=== PATIENT | female | born 1950 | race Caucasian/White ===

== ENCOUNTER 2018-04-25 09:39 | Outpatient (CLI) | payer OTHER ==
[~2018-04-25 09:39] MED LIST: AMPICILLIN125 MG/5 M PO; DICLOFENAC SOD100 MG PO; PANADOL EXTRA500 MG PO; ROBITUSSIN COUG PO
== END 2018-04-25 09:54 | disposition home or self-care (01) ==
LOC: LAB 09:39
DX: R19.04 Left lower quadrant abdominal swelling, mass and lump (principal); Z51.81 Encounter for therapeutic drug level monitoring

== ENCOUNTER 2018-05-02 07:35 | Outpatient (CLI) | payer OTHER | END 2018-05-02 12:31 | disposition home or self-care (01) | LOC: TOM 07:35 | DX: R19.02 Left upper quadrant abdominal swelling, mass and lump (principal); Z85.038 Personal history of other malignant neoplasm of large intestine | CPT/HCPCS: 71260; 74177; Q9965 ==

== ENCOUNTER → 2019-05-22 | Outpatient (CLI) | payer OTHER | END | disposition home or self-care (01) | LOC: TOM 08:47 | DX: C18.9 Malignant neoplasm of colon, unspecified (principal); C50.919 Malignant neoplasm of unspecified site of unspecified female breast ==

== ENCOUNTER 2022-11-17 08:12 | Outpatient (CLI) | payer OTHER | END 2022-11-17 08:18 | disposition home or self-care (01) | LOC: RAD 08:12 | DX: M51.9 Unspecified thoracic, thoracolumbar and lumbosacral intervertebral disc disorder (principal) ==

== ENCOUNTER 2023-12-27 09:14 | Outpatient (CLI) | payer OTHER | END 2023-12-27 09:15 | disposition home or self-care (01) | LOC: NUCLEAR 09:14 | PROVIDERS: ATTEND Specialist | DX: C50.212 Malignant neoplasm of upper-inner quadrant of left female breast (principal); C18.5 Malignant neoplasm of splenic flexure | CPT/HCPCS: 78315; A9503 ==

== ENCOUNTER 2024-04-01 08:09 | Outpatient (CLI) | payer OTHER | END 2024-04-01 08:14 | disposition home or self-care (01) | LOC: RAD 08:09 | DX: M16.0 Bilateral primary osteoarthritis of hip (principal) ==

== ENCOUNTER 2025-01-02 07:16 | Outpatient (CLI) | payer OTHER | END 2025-01-02 07:17 | disposition home or self-care (01) | LOC: NUCLEAR 07:16 | PROVIDERS: ATTEND Specialist | DX: C50.212 Malignant neoplasm of upper-inner quadrant of left female breast (principal); M81.0 Age-related osteoporosis without current pathological fracture | CPT/HCPCS: 78306; A9503 ==

== ENCOUNTER 2025-01-15 07:37 | Outpatient (CLI) | payer OTHER | END 2025-01-15 07:43 | disposition home or self-care (01) | LOC: TOM 07:37 | PROVIDERS: ATTEND Specialist | DX: C50.212 Malignant neoplasm of upper-inner quadrant of left female breast (principal); M25.50 Pain in unspecified joint | CPT/HCPCS: 74178; Q9965 ==